=== PATIENT | male | born 1995 | race Caucasian/White ===

== ENCOUNTER 2018-04-30 21:11 | Emergency (ER) | payer SELFPAY | END 2018-04-30 21:20 | disposition left against medical advice (07) | LOC: ED 21:11 | DX: K08.89 Other specified disorders of teeth and supporting structures (principal); Z53.21 Procedure and treatment not carried out due to patient leaving prior to being seen by health care provider ==

== ENCOUNTER 2021-02-15 21:36 | Emergency (ER) | payer SELFPAY ==
[2021-02-16 01:09] LABS: Basophils % (Auto) 0.2 % (0.0-1.8); Eosinophils # (Auto) 0.2 K/mm3 (0.0-0.4); Eosinophils % (Auto) 1.4 % (0.0-4.3); Hematocrit 40.9 % (35.5-45.6); Hemoglobin 14.3 gm/dl (11.8-15.2); Lymphocytes # (Auto) 2.9 K/mm3 (1.2-5.4); Lymphocytes % (Auto) 25.2 % (13.4-35.0); Mean Corpuscular HGB Conc 35 % (32-34); Mean Corpuscular Volume 90 fl (84-94); Monocytes % (Auto) 8.9 % (0.0-7.3); Platelet Count 338 K/mm3 (140-440); Red Blood Count 4.57 M/mm3 (3.65-5.03)
[2021-02-16 01:32] LABS: Alanine Aminotransferase 25 units/L (7-56); Albumin 4.2 g/dL (3.9-5); Blood Urea Nitrogen 11 mg/dL (9-20); Calcium 9.3 mg/dL (8.4-10.2); Hemolysis Index 11
[2021-02-16 01:33] LABS: BUN/Creatinine Ratio 16
--- NOTE | 2021-02-16 05:09 | Emergency Department Report ---
HPI - General Chief Complaint: Arrhythmia/Palpitations - HPI HPI: Room 25 The patient is a 25-year-old male present with a chief complaint of palpitations and dizziness. The patient states he was recently diagnosed with hyperthyroidism but was apparently asymptomatic. Patient states this evening he developed some lightheadedness and his Apple Watch informed him that his heart rate was over 120. Patient denied ever having chest pain. The patient states he made an appointment to follow-up with his primary physician next week but came to the emergency department for the palpitations. The patient states the symptoms have since resolved and he is currently asymptomatic ED Past Medical Hx - Past Medical History Previous Medical History?: Yes Additional medical history: Hyperthyroidism. Obesity - Surgical History Past Surgical History?: No - Family History Family history: no significant - Social History Smoking Status: Current Every Day Smoker (Vape) Substance Use Type: None (Denies illicit drug use explicitly denies methamphetamine, cocaine or Ritalin), Prescribed - Medications Home Medications: Home Medications Medication Instructions Recorded Confirmed Last Taken Type propranoloL [Inderal] 40 mg PO QDAY #30 tablet 02/16/21 Unknown Rx ED Review of Systems ROS: Stated complaint: RAPID HEART BEAT Other details as noted in HPI Constitutional: no symptoms reported Eyes: denies: eye pain ENT: denies: throat pain Respiratory: shortness of breath Cardiovascular: palpitations. denies: chest pain Endocrine: no symptoms reported Gastrointestinal: denies: abdominal pain Genitourinary: denies: dysuria Musculoskeletal: denies: back pain Neurological: other (Lightheadedness) Physical Exam - Physical Exam Vital Signs: Vital Signs 02/15/21 02/16/21 23:58 04:56 Temperature 98.2 F Pulse Rate 116 H 93 H Respiratory 16 16 Rate Blood Pressure 130/74 Blood Pressure 115/67 [Left] O2 Sat by Pulse 97 97 Oximetry Physical Exam: GENERAL: The patient is well-developed well-nourished male lying on stretcher not appearing to be in acute distress. [] HEENT: Normocephalic. Atraumatic. Extraocular motions are intact. Patient has moist mucous membranes. NECK: Supple. Trachea midline CHEST/LUNGS: Clear to auscultation. There is no respiratory distress noted. HEART/CARDIOVASCULAR: Regular. There is no tachycardia. There is no gallop rub or murmur. ABDOMEN: Abdomen is soft, nontender. Patient has normal bowel sounds. There is no abdominal distention. SKIN: There is no rash. There is no edema. There is no diaphoresis. NEURO: The patient is awake, alert, and oriented. The patient is cooperative. The patient has no focal neurologic deficits. The patient has normal speech MUSCULOSKELETAL: There is no evidence of acute injury. ED Course Vital Signs 02/15/21 02/16/21 23:58 04:56 Temperature 98.2 F Pulse Rate 116 H 93 H Respiratory 16 16 Rate Blood Pressure 130/74 Blood Pressure 115/67 [Left] O2 Sat by Pulse 97 97 Oximetry ED Medical Decision Making - Lab Data Result diagrams: 02/16/21 00:18 02/16/21 00:18 Laboratory Tests 02/16/21 02/16/21 02/16/21 00:18 00:18 00:18 WBC 11.6 H RBC 4.57 Hgb 14.3 Hct 40.9 MCV 90 MCH 31 MCHC 35 H RDW 14.0 Plt Count 338 Lymph % (Auto) 25.2 [place] % (Auto) 8.9 H Eos % (Auto) 1.4 Baso % (Auto) 0.2 Lymph # (Auto) 2.9 [place] # (Auto) 1.0 H Eos # (Auto) 0.2 Baso # (Auto) 0.0 Seg Neutrophils % 64.3 Seg Neutrophils # 7.5 Sodium 140 Potassium 4.0 Chloride 102.7 Carbon Dioxide 27 Anion Gap 14 BUN 11 Creatinine 0.7 L Estimated GFR > 60 BUN/Creatinine Ratio 16 Glucose 99 Calcium 9.3 Total Bilirubin 0.30 AST 23 ALT 25 Alkaline Phosphatase 62 Troponin T Total Protein 6.5 Albumin 4.2 Albumin/Globulin Ratio 1.8 TSH < 0.005 L Free T4 02/16/21 02/16/21 00:18 00:18 WBC RBC Hgb Hct MCV MCH MCHC RDW Plt Count Lymph % (Auto) [place] % (Auto) Eos % (Auto) Baso % (Auto) Lymph # (Auto) [place] # (Auto) Eos # (Auto) Baso # (Auto) Seg Neutrophils % Seg Neutrophils # Sodium Potassium Chloride Carbon Dioxide Anion Gap BUN Creatinine Estimated GFR BUN/Creatinine Ratio Glucose Calcium Total Bilirubin AST ALT Alkaline Phosphatase Troponin T < 0.010 Total Protein Albumin Albumin/Globulin Ratio TSH Free T4 3.32 H - EKG Data -: EKG Interpreted by [place] EKG shows normal: sinus rhythm Rate: tachycardia (110 bpm) - EKG Data When compared to previous EKG there are: previous EKG unavailable Interpretation: other (No ischemic changes seen) - Radiology Data Radiology results: report reviewed (Chest x-ray), image reviewed (Chest x-ray) interpreted by me: Chest x-ray-no focal infiltrates, no pneumothorax. No foreign body seen [facility] [address] [place] [address] XRay Report Signed Patient: KATHIE ARROYO MR#: [id number] : 1995 Acct:[id number] Age/Sex: 25 / M ADM Date: 02/15/21 Loc: ED Attending Dr: Ordering Physician: OWEN VALDERRAMA MD Date of Service: 02/16/21 Procedure(s): XR chest 1V ap Accession Number(s): [id number] cc: OWEN VALDERRAMA MD Fluoro Time In Minutes: CHEST 1 VIEW, 02/16/2021 5:03 AM CLINICAL INFORMATION/INDICATION: Palpitations COMPARISON: None. FINDINGS: SUPPORT DE VICES: None. HEART: The cardiac silhouette is normal in size. LUNGS/PLEURA: The lungs are clear of focal airspace disease or significant pleural effusion. ADDITIONAL FINDINGS: No additional acute findings. IMPRESSION: 1. No evidence of acute cardiopulmonary process. Signer Name: Aida Isaac MD Signed: 02/16/2021 5:30 AM Workstation Name: [id number] Transcribed By: EB Dictated By: Aida Isaac MD Electronically Authenticated By: Aida Isaac MD Signed Date/Time: 02/16/21529 DD/ 9 TD/TT: Print Cancel - Differential Diagnosis Hypothyroidism, pneumonia, pneumothorax Critical care attestation.: If time is entered above; I have spent that time in minutes in the direct care of this critically ill patient, excluding procedure time. ED Disposition Clinical Impression: Hypothyroidism Disposition: DC-01 TO HOME OR SELFCARE Is pt being admited?: No Does the pt Need Aspirin: No Condition: Stable Instructions: Hyperthyroidism Additional Instructions: Return to the emergency department should you develop worsening symptoms, inability to tolerate food or liquids, high fever or any other concerns Prescriptions: propranoloL [Inderal] 40 mg PO QDAY #30 tablet Referrals: PRIMARY CARE, [Primary Care Provider] - 3-5 Days Time of Disposition: 05:48
--- NOTE | 2021-02-16 05:35 | XRay Report ---
CHEST 1 VIEW, 02/16/2021 5:03 AM CLINICAL INFORMATION/INDICATION: Palpitations COMPARISON: None. FINDINGS: SUPPORT DEVICES: None. HEART: The cardiac silhouette is normal in size. LUNGS/PLEURA: The lungs are clear of focal airspace disease or significant pleural effusion. ADDITIONAL FINDINGS: No additional acute findings. IMPRESSION: 1. No evidence of acute cardiopulmonary process. Signer Name: Aida Isaac MD Signed: 02/16/2021 5:30 AM Workstation Name: [id number]
[2021-02-16 07:07] VITALS: BP 123/70
--- NOTE | 2021-02-21 12:40 | Electrocardiograph Report ---
[facility] Test Date: 2021-02-16 Test Time: 00:04:05 Pat Name: KATHIE ARROYO Department: Room: Gender: M [id number]: ROGER : 1995 Requested By: OWEN VALDERRAMA Order Number: [id number] Reading MD: Kary Keenan Measurements Intervals [place] Rate: 110 P: 55 ID: [id number] QRS: 31 QRSD: 96 T: 27 QT: 298 QTc: 403 Interpretive Statements Sinus tachycardia Otherwise normal ECG No previous ECG available for comparison Electronically Signed On 02-21-2021 12:39:54 EDT by Kary Keenan
== END 2021-02-16 07:07 | disposition home or self-care (01) ==
LOC: ED 21:36
DX: E03.9 Hypothyroidism, unspecified (principal); F17.200 Nicotine dependence, unspecified, uncomplicated; E66.9 Obesity, unspecified; Z68.32 Body mass index [BMI] 32.0-32.9, adult; Z79.899 Other long term (current) drug therapy
CPT/HCPCS: 36415; 71045; 80053; 84439; 84443; 84484; 85025; 93005